=== PATIENT | female | born 1945 | race Caucasian/White ===

== ENCOUNTER 2020-12-29 15:13 | Emergency (ER) | payer OTHER ==
[~2020-12-29] VITALS: Ht 160 cm; Wt 63.5 kg
[~2020-12-29 15:13] MED LIST: ACTONEL150 MG PO; ADULT LOW DOSE81 MG PO; ATIVAN1 MG PO; CALCIUM CITRAT1 EA14 PO; ESTRACE1 MG PO; EVOXAC30 MG PO; FLAX SEED OIL1000 MG PO; GABAPENTIN PO; HYDROCODON-ACE1 EAC5; KLOR-CON 1010 MEQ PO; MAGNESIUM250 M1 PO; OMEGA-31000 M1 PO; PHENERGAN 25 MG25 M1 PO; PHENERGAN25 MG RE; PRINIVIL10 MG PO; RESTASIS1 EACH; SEROQUEL PO; SIMVASTATIN80 MG PO; SLOW-MAG64 MG PO; VALIUM10 MG; VITAMIN A10000 UNI3 PO; ZOFRAN ODT4 MG PO
[2020-12-29 15:51] LABS: ABSOLUTE NEUTROPHILS 9.6 thou/uL (1.4-8.2); BASOPHILS 0.3 % (0.0-2.0); EOSINOPHILS 0.6 % (0.0-3.0); HEMOGLOBIN 12.7 gm/dL (12.0-15.0); LYMPHOCYTES 9.1 % (24.0-44.0); MCH 28.8 pg (26.0-34.0); MCHC 33.4 g/dL (28.0-37.0); MONOCYTES 8.4 % (1.0-8.0); PLATELET COUNT 538 thou/uL (150-400); POLYS 81.6 % (36.0-66.0); RBC 4.42 mil/uL (4.20-5.00); RDW 14.6 % (10.5-14.5); WBC 11.7 thou/uL (4.0-11.0)
[2020-12-29 15:56] LABS: ANION GAP 5 mmol/L (7-16); BUN 16 mg/dL (7-18); CALCIUM 8.7 mg/dL (8.5-10.1); CHLORIDE 103 mmol/L (98-107); CO2 28 mmol/L (21-32); CREATININE 1.3 mg/dL (0.6-1.0); GLUCOSE 121 mg/dL (74-106); POTASSIUM 4.2 mmol/L (3.5-5.1); SODIUM 136 mmol/L (136-145)
[2020-12-29 16:05] LABS: ALBUMIN 3.8 g/dL (3.4-5.0); SGOT 32 U/L (15-37); SGPT 29 U/L (14-59); TOTAL BILIRUBIN 0.4 mg/dL (0.2-1.0); TOTAL PROTEIN 6.7 g/dL (6.4-8.2); TROPONIN-I <0.06 ng/mL (<0.06)
[2020-12-29 18:09] LABS: URINE BILIRUBIN NEGATIVE (Negative); URINE BLOOD NEGATIVE (Negative); URINE CLARITY CLEAR; URINE COLOR YELLOW; URINE GLUCOSE-RANDOM* NEGATIVE (Negative); URINE KETONES TRACE (Negative); URINE LEUKOCYTES-REFLEX NEGATIVE (Negative); URINE NITRITE-REFLEX NEGATIVE (Negative); URINE PROTEIN (DIPSTICK) NEGATIVE (Negative); URINE SPECIFIC GRAVITY 1.025 (1.005-1.035); URINE UROBILINOGEN 0.2 E.U./dl (0.2-1.0)
[2020-12-29 20:30] VITALS: BP 121/74
--- NOTE | 2020-12-30 07:27 | EKG ---
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
== END 2020-12-29 20:37 | disposition home or self-care (01) ==
LOC: ER 15:13
PROVIDERS: Nurse Practitioner
DX: T84.020A Dislocation of internal right hip prosthesis, initial encounter (principal); S70.01XA Contusion of right hip, initial encounter; F31.9 Bipolar disorder, unspecified; I10 Essential (primary) hypertension; Z88.0 Allergy status to penicillin; Z88.2 Allergy status to sulfonamides; Z88.8 Allergy status to other drugs, medicaments and biological substances; Z79.891 Long term (current) use of opiate analgesic; Z79.899 Other long term (current) drug therapy; W08.XXXA Fall from other furniture, initial encounter; Y99.8 Other external cause status; Y93.89 Activity, other specified; Y92.89 Other specified places as the place of occurrence of the external cause